=== PATIENT | male | born 1975 ===

== ENCOUNTER → 2018-05-23 | Outpatient (CLI) | payer OTHER | END | disposition home or self-care (01) | LOC: RAD 16:24 | DX: K62.89 Other specified diseases of anus and rectum (principal); K59.4 Anal spasm; K55.1 Chronic vascular disorders of intestine; K62.5 Hemorrhage of anus and rectum ==

== ENCOUNTER 2018-05-29 04:52 | Day surgery (SDC) | payer OTHER ==
[~2018-05-29 04:52] MED LIST: CITALOPRAM HBR20 MG PO; CLONAZEPAM0.5 MG PO; FOSAMAX70 MG PO; LISINOPRIL20 MG PO; SYNTHROID50 MCG PO
[2018-05-29] MEDS ORDERED: PERCOCET 5-3251 EACH PO ×2 (09:28)
[2018-05-29] MEDS ORDERED: COLACE100 MG PO ×2 (09:28)
[2018-05-29] MEDS ORDERED: ULTRACET PO ×2 (11:24)
[2018-05-29] MEDS ORDERED: METAMUCIL PACK3.4 GM PO ×2 (11:24)
== END 2018-05-29 13:50 | disposition home or self-care (01) ==
LOC: CIR.AMB 04:52
DX: K64.1 Second degree hemorrhoids (principal); K64.8 Other hemorrhoids

== ENCOUNTER 2018-06-01 15:07 | Emergency (ER) | payer OTHER ==
[~2018-06-01] VITALS: Ht 167.6 cm; Wt 74.8 kg
[~2018-06-01 15:07] MED LIST changes: +COLACE100 MG PO; +METAMUCIL PACK3.4 GM PO; +PERCOCET 5-3251 EACH PO; +ULTRACET PO
== END 2018-06-01 20:35 | disposition home or self-care (01) ==
LOC: ER 15:07
DX: R50.82 Postprocedural fever (principal); R30.0 Dysuria; N99.89 Other postprocedural complications and disorders of genitourinary system; K64.1 Second degree hemorrhoids; K62.89 Other specified diseases of anus and rectum; J32.8 Other chronic sinusitis; J11.1 Influenza due to unidentified influenza virus with other respiratory manifestations

== ENCOUNTER 2019-07-29 08:17 | Day surgery (SDC) | payer OTHER | END 2019-07-29 12:41 | disposition home or self-care (01) | LOC: AMB-ENDOS 08:17 | DX: D12.8 Benign neoplasm of rectum (principal) ==